=== PATIENT | male | born 1965 | race Two or more races ===

== ENCOUNTER 2021-11-11 09:11 | Outpatient (REF) | payer OTHER, SELFPAY ==
[2021-11-11 11:26] LABS: Prostate Specific Antigen 8.94 ng/mL (<0.05-4.0)
== END 2021-11-11 09:12 | disposition home or self-care (01) ==
LOC: HO.10HDL 09:11
PROVIDERS: Visit Provider Urology
DX: Z12.5 Encounter for screening for malignant neoplasm of prostate (principal); R97.20 Elevated prostate specific antigen [PSA]
CPT/HCPCS: 36415; 84153

== ENCOUNTER → 2021-11-19 13:30 | Outpatient (BNVA) | payer OTHER, SELFPAY | PROVIDERS: PCP Family Medicine; Visit Provider Urology | DX: R97.20 Elevated prostate specific antigen [PSA] (principal); R39.15 Urgency of urination | CPT/HCPCS: 99212 ==

== ENCOUNTER 2022-02-15 07:52 | Outpatient (REF) | payer OTHER, SELFPAY ==
[2022-02-15 07:57] VITALS: BMI 28.1
[2022-02-15 07:59] VITALS: BP 118/75; PULSE 71; RESP 16; TEMP 36.4; O2SAT 98
--- NOTE | 2022-02-15 08:32 | W.PM.OPN ---
Operative Note Operative Note Date of Service: 02/15/22 Narrative: Preoperative diagnosis: Elevated PSA Postoperative diagnosis: Elevated PSA Procedure: 1. transrectal ultrasound measurement of prostate 2. transrectal ultrasound-guided pudendal nerve block 3. transrectal ultrasound-guided prostate biopsy 12 core Surgeon: Dr. Hu Godoy Anesthetic: Local Indications for procedure: Elevated PSA 8.8 Procedure: After informed consent was verified, the patient was brought into the procedure area and lay left-hand side down on the table. Patient identity confirmed. Perioperative antibiotics confirmed. Safety pause time out performed. MAINE performed to dilate rectal sphincter Iodine 10cc with Gel was placed per rectum Ultrasound probe was placed per rectum The prostate was measured in 3 dimensions Total volume equals 30 gm No cystic structures were noted No calcifications were noted at the surgical margin The prostate was otherwise homogeneous in nature An ultrasound-guided pudendal nerve block was performed using 10 cc of 1% lidocaine. 8 cc was placed at the base and 2 cc of the apex. A 12 core biopsy was performed with 6 cores each side. Two cores were taken at the apex, mid and base. Cores were spaced between lateral and medial. He tolerated the procedure well. Was able to ambulate to bathroom after 5 minutes. Printed instructions regarding antibiotic use and common side effects such as low-grade temperature, potential infection and bleeding were given Pathology: 12 core prostate biopsy.
[2022-02-15 08:59] VITALS: BP 124/79; PULSE 82; RESP 16; O2SAT 99
== END 2022-02-15 07:53 | disposition home or self-care (01) ==
LOC: HO.MS 07:52
PROVIDERS: PCP Family Medicine; Visit Provider Urology
PROC: (CPT 55700; principal; 2022-02-15 08:00)
DX: C61 Malignant neoplasm of prostate (principal); R97.20 Elevated prostate specific antigen [PSA]
CPT/HCPCS: 55700; 76942; 88305; 88344

== ENCOUNTER → 2022-03-22 13:24 | Outpatient (BNVA) | payer OTHER, SELFPAY | PROVIDERS: PCP Family Medicine; Visit Provider Urology | DX: C61 Malignant neoplasm of prostate (principal); R97.20 Elevated prostate specific antigen [PSA]; Z79.899 Other long term (current) drug therapy | CPT/HCPCS: 99212 ==

== ENCOUNTER → 2022-04-14 10:38 | Outpatient (REF) | payer OTHER, SELFPAY ==
--- NOTE | ~2022-04-14 | NM_ITS ---
EXAMINATION: NM BONE SCAN OF THE WHOLE BODY CLINICAL INFORMATION: Malignant neoplasm of the prostate. COMPARISON: No pertinent studies are available to me for comparison TECHNIQUE: Multiple gamma scintillation camera images of the whole body were performed 3 hours following the intravenous administration of 28 mCi Tc-99m MDP. FINDINGS: In the head, some minimal areas of nonspecific uptake in the right calvarium high on the right frontally and laterally on the right frontally. In the thoracic cage and upper extremities, unremarkable. In the spine, unremarkable. In the pelvis, some minimal uptake in the area of the lesser trochanter of the left hip. This could be degenerative in nature. In the lower extremities, unremarkable. No other definite bony abnormalities are noted. The urinary bladder and faint visualization of both kidneys are noted. NM/NM bone scan whole body IMPRESSION: Some mild nonspecific areas of uptake are described.. Exam is otherwise unremarkable. Therefore no convincing scintigraphic evidence for metastatic disease.
== END ==
LOC: HO.NUCMED 10:38
PROVIDERS: PCP Family Medicine; Visit Provider Urology
DX: C61 Malignant neoplasm of prostate (principal); C79.51 Secondary malignant neoplasm of bone
CPT/HCPCS: 78306; A9503

== ENCOUNTER → 2022-04-28 12:25 | Outpatient (BNVA) | payer OTHER, SELFPAY | PROVIDERS: PCP Family Medicine; Visit Provider Urology | DX: Z13.89 Encounter for screening for other disorder (principal) ==

== ENCOUNTER → 2022-07-27 15:09 | Outpatient (BNVA) | payer OTHER, SELFPAY | PROVIDERS: PCP Family Medicine; Visit Provider Urology | DX: N52.31 Erectile dysfunction following radical prostatectomy (principal) | CPT/HCPCS: 99212 ==

== ENCOUNTER 2022-11-29 10:47 | Outpatient (AMB) | payer OTHER, SELFPAY ==
--- NOTE | 2022-11-29 11:00 | A.OFFVIS_ITS ---
Intake Intake Visit Reasons: 4m/PSA(set) Intake Note: Patient is present for Follow Up PSA Urology Med: Patient is no longer taking tadalafil due to causing headaches Antibiotic Allergy: None Blood Thinner: None Pharmacy: [facility] Allergies No Known Allergies Allergy (Verified 11/29/22 11:04) Medication List - Last Reconciled 11/29/22 by Hu Godoy MD tadalafil 10 mg PO DAILY 90 days vacuum erection device system As directed HPI HPI Comments History of Present Illness Details Michi is a very pleasant male. He is a patient of Dr. Ryan. He is seen today for the following urologic conditions. - Elevated PSA - Prostate Cancer Six month follow-up Good urinary control PSA low Continued erectile dysfunction Discussed injection therapy 3 month follow-up PSA 12/10 <0.05 Prostate Cancer - 02/08 - Grade Group 4, PSA at diagnosis 8.9 Initial therapy prostatectomy - 06/09 Dr Masters Robotic prostatectomy - pathology confirmed [place] 4 + 5. Organ confined disease. Histologic type: Adenocarcinoma, acinar type Histologic grade: [place] score: 4+5=9 (right mid lateral, right mid medial), 4+4=8 (right apex medial), 4+3=7 (left base medial), 3+3=6 (right apex lateral) Number cores positive: 5 Total number of cores: 12 % of tissue involved: 5-10% of all tissue examined Periprostatic fat inv.: Not identified, Seminal vesicle inv.: Not identified, Perineural inv.: Present, LVI: Not identified Imaging 12/09 MRI left mid apical peripheral 1.2 cm lesion PI-RADS 4, DERREK negative, NVB spared - 04/11 Bone Scan No evidence of disease PFSH Medical History Elevated PSA Surgical History History of surgery Review of Systems Const Denies chills and Denies fever(s) Card Reports no additional complaints and Denies syncope Resp Denies cough GI Denies abdominal pain and Denies heartburn Reports as per HPI and Denies change in libido Neuro Denies syncope Psych Denies change in libido Endo Denies change in libido Physical Exam Const General: cooperative, healthy appearing, comfortable and no acute distress Orientation/consciousness: patient oriented x3 HEENT Face and sinus: Yes normal facial exam Mouth: moist mucous membranes Neck Neck: Yes normal visual inspection, Yes full ROM and Yes trachea midline Chest Chest palpation & inspection: normal inspection of the chest Resp Effort & Inspection: normal respiratory effort, able to speak in complete s entences and no respiratory distress GI Inspection: Yes normal to inspection Back/Spine/Pelvis Cervical Spine: normal cervical lordosis Thoracic/Lumbar Spine: thoracic and lumbar spine normal to inspection Skin General skin exam: no rashes or lesions noted Neuro General: patient oriented x3, gait normal, tone normal and moves all extremities Extrem General: Yes normal to inspection and Yes capillary refill normal Assessment & Plan Assessment & Plan (1) Prostate cancer: Comment: 02/0822 grade group 5, MRI DERREK negative Code(s): C61 - Malignant neoplasm of prostate (2) Erectile dysfunction after radical prostatectomy: Code(s): N52.31 - Erectile dysfunction following radical prostatectomy Plan 3 month follow-up Orders: Orders Prostate Specific Antigen 3 Months C61 - Malignant neoplasm of prostate Patient Instructions: Imaging studies, laboratory and physical exam results were discussed and reviewed in detail. No major barriers to patient understanding were identified. An opportunity to ask questions regarding the treatment plan was provided. All questions were answered. The patient expressed understanding and agreement with the above treatment plan. The patient is aware they should contact our office by phone for worsening of their current condition or the appearance of new urologic symptoms. Compliance is encouraged with any medications and followup testing that is ordered. It is a privilege to participate in the urologic care of your patient. If you have any questions or concerns regarding treatment for the above conditions, or other urologic issues, please do not hesitate to contact me. The office telephone contact is [phone]. This note is constructed using voice recognition software. While every effort has been made to ensure accuracy literacy consultant errors may have been included. Yours sincerely, Dr Hu Godoy MD, [facility] - Urology Providers of Expert, Compassionate Care for the Genitourinary System Coding Level of Care Code Est Pt Level 3 (66046) Diagnoses Prostate cancer C61 Erectile dysfunction after radical prostatectomy N52.31
== END 2022-11-29 11:29 | disposition home or self-care (01) ==
PROVIDERS: PCP Family Medicine; Visit Provider Urology
DX: C61 Malignant neoplasm of prostate (principal); N52.31 Erectile dysfunction following radical prostatectomy
CPT/HCPCS: 99213

== ENCOUNTER → 2022-11-29 10:47 | Outpatient (BNVA) | payer OTHER, SELFPAY | PROVIDERS: Visit Provider Urology | DX: C61 Malignant neoplasm of prostate (principal); N52.31 Erectile dysfunction following radical prostatectomy | CPT/HCPCS: 99212 ==

== ENCOUNTER 2023-04-24 10:50 | Outpatient (AMB) | payer OTHER, SELFPAY ==
--- NOTE | 2023-04-24 11:11 | A.OFFVIS_ITS ---
Intake Intake Visit Reasons: 3m/PSA Intake Note: Patient is present for Follow Up PSA: Results <0.04, 04/12/2023 Urology Med: Patient is no longer taking tadalafil due to causing headaches Antibiotic Allergy: None Blood Thinner: None Pharmacy: [facility] Required: No Accompanied by: Self / Same As Patient Allergies No Known Allergies Allergy (Verified 11/29/22 11:04) HPI HPI Comments History of Present Illness Details Michi is a 58-year-old male followed due to diagnosis of prostate cancer status post robotic radical prostatectomy May 2022. He is followed by Dr. Godoy, he was last seen on 11/29/2022. He is being monitored with PSA blood work. I have reviewed recent PSA. 04/10/2023--PSA--less than 0.04 The patient states he was prescribed Cialis for erectile dysfunction but was not able to tolerate it due to side effect of headaches. Dr. Godoy discussed the VAC pump which he states did not work well for him. Review of chart: Prostate Cancer - 02/08 - Grade Group 4, PSA at diagnosis 8.9 Initial therapy prostatectomy - 06/09 Dr Masters Robotic prostatectomy - pathology confirmed [place] 4 + 5. Organ confined disease. Histologic type: Adenocarcinoma, acinar type Histologic grade: [place] score: 4+5=9 (right mid lateral, right mid medial), 4+4=8 (right apex medial), 4+3=7 (left base medial), 3+3=6 (right apex lateral) Number cores positive: 5 Total number of cores: 12 % of tissue involved: 5-10% of all tissue examined Periprostatic fat inv.: Not identified, Seminal vesicle inv.: Not identified, Perineural inv.: Present, LVI: Not identified Imaging 12/09 MRI left mid apical peripheral 1.2 cm lesion PI-RADS 4, DERREK negative, NVB spared - 04/11 Bone Scan No evidence of disease Plan: Continue to monitor PSA. have answered some questions regarding injection therapy for erectile dysfunction the patient still has some questions he wants to discuss with Dr. Godoy, telehealth follow-up scheduled [facility] Medical History Elevated PSA Surgical History (Updated 04/24/23 @ 11:19 by KENY Parks) History of prostate surgery History of surgery Family History (Updated 04/24/23 @ 11:19 by KENY Parks) Father No problems noted. Mother No problems noted. Sister Colon cancer Social History (Updated 04/24/23 @ 11:20 by KENY Parks) Alcohol intake: current Alcohol intake frequency: a few times a month Patient Tobacco Use Status: Never used Tobacco Review of Systems Const All systems reviewed & are unremarkable except as noted in HPI and below Reports no additional complaints Eyes Reports no additional complaints ENT Reports no additional complaints Card Denies dyspnea Resp Denies cough and Denies dyspnea GI Reports no additional complaints Musc Reports no additional complaints Skin/Breast Denies rash and Denies unusual bruising Neuro Reports no additional complaints Psych Reports no additional complaints Endo Reports no additional complaints Sanchez/Lymph Reports no additional complaints Aller/Immun Reports no additional complaints Results AMB Urinalysis, Automated UA Leukoctes 0 Efren/uL Last Edit by KENY Parks on 04/24/23 11:23 UA Nitrite Negative Last Edit by KENY Parks on 04/24/23 11:23 UA Urobilinogen 0.2 mg/dL Last Edit by KENY Parks on 04/24/23 11:2 3 UA Protein 15 mg/dL Last Edit by KENY Parks on 04/24/23 11:23 UA pH 6.0 Last Edit by KENY Parks on 04/24/23 11:23 UA Blood 0 Rigo/uL Last Edit by KENY Parks on 04/24/23 11:23 UA Specific [place] 1.025 Last Edit by KENY Pakrs on 04/24/23 11: 23 UA Ketone Negative Last Edit by KENY Parks on 04/24/23 11:23 UA Bilirubin 0 mg/dL Last Edit by KENY Parks on 04/24/23 11:23 UA Glucose 0 mg/dL Last Edit by KENY Parks on 04/24/23 11:23 Results Reviewed Results Reviewed: Laboratory Last Values Urine pH (Auto) 6.0 04/24/23 11:20 Specific [place] (Auto) 1.025 04/24/23 11:20 Urine Protein (Auto) 15 mg/dL 04/24/23 11:20 Glucose (UA)(Auto) 0 mg/dL 04/24/23 11:20 Urine Ketones (Auto) Negative 04/24/23 11:20 Urine Blood (Auto) 0 Rigo/uL 04/24/23 11:20 Urine Nitrite (Auto) Negative 04/24/23 11:20 Urine Bilirubin (Auto) 0 mg/dL 04/24/23 11:20 Urine Urobilinogen (Auto) 0.2 mg/dL 04/24/23 11:20 Leukocyte Esterase (Auto) 0 Efren/uL 04/24/23 11:20 Assessment & Plan Assessment & Plan (1) Prostate cancer: Comment: 02/0822 grade group 5, MRI DERREK negative Code(s): C61 - Malignant neoplasm of prostate (2) Erectile dysfunction after radical prostatectomy: Code(s): N52.31 - Erectile dysfunction following radical prostatectomy Plan Telehealth follow-up discuss questions regarding penile injection therapy Orders: Orders AMB Urinalysis Automated Today Z13.9 - Encounter for screening, unspecified Patient Instructions: The patient had an opportunity to ask questions regarding treatment plan. All questions were answered. Laboratory studies and physical exam results were discussed and reviewed in detail. No major barriers to understanding were identified. The patient expressed understanding and agreement with the above treatment plan. The patient is aware they should contact our office by phone for worsening of their current condition or the appearance of new symptoms. Compliance is encouraged with any medications and followup testing that is ordered. It is a privilege to be allowed the opportunity to participate in the urologic care of your patient. If you have any questions or concerns regarding treatment for the above conditions please do not hesitate to contact me. The office telephone contact is [phone]. This note is constructed in part using voice recognition software. While every effort has been made to ensure accuracy superintendent pier errors may have been included. Yours sincerely, Guille Lira MD Coding Level of Care Code Est Pt Level 4 (62331) Diagnoses Prostate cancer C61 Erectile dysfunction after radical prostatectomy N52.31
== END 2023-04-24 12:00 | disposition home or self-care (01) ==
PROVIDERS: PCP Family Medicine; Visit Provider Urology
DX: C61 Malignant neoplasm of prostate (principal); N52.31 Erectile dysfunction following radical prostatectomy; Z13.9 Encounter for screening, unspecified
CPT/HCPCS: 99214

== ENCOUNTER → 2023-04-24 10:50 | Outpatient (BNVA) | payer OTHER, SELFPAY | PROVIDERS: PCP Family Medicine; Visit Provider Urology | DX: C61 Malignant neoplasm of prostate (principal); N52.31 Erectile dysfunction following radical prostatectomy | CPT/HCPCS: 81003; 99212 ==

== ENCOUNTER 2023-06-22 08:23 | Outpatient (AMB) | payer OTHER, SELFPAY ==
--- NOTE | 2023-06-22 08:23 | A.OFFVIS_ITS ---
Intake Intake Visit Reasons: discuss injection therapy(confirmed) Intake Note: Patient presents today for a telehealth follow up on: discussion on injection therapy Meds- Vacuum Erection device system Allergies to Antibiotic- No Known Allergies Blood Thinner- None Outside Parts Sales Required: No Allergies No Known Allergies Allergy (Verified 06/22/23 08:24) Medication List - Last Reconciled 06/22/23 by Hu Godoy MD alprostadil (Edex) 1.25 mcg intra-cavernosal .1XW PRN 90 days vacuum erection device system As directed HPI HPI Comments History of Present Illness Details Michi is a pleasant male. He is a patient of Dr. Ryan. He is seen for the following urologic conditions - prostate cancer Telemedicine Evaluation 15 min Consultation [employer] Video attempted 04/10/2023--PSA--less than 0.04 The patient states he was prescribed Cialis for erectile dysfunction but was not able to tolerate it due to side effect of headaches. Dr. Godoy discussed the VAC pump which he states did not work well for him Prescription for Edex sent to [facility]. He will call when Has prescription for teaching Prostate Cancer - 02/08 - Grade Group 4, PSA at diagnosis 8.9 - robotic prostatectomy 06/09 Initial therapy prostatectomy - 06/09 Dr Masters Robotic prostatectomy - pathology confirmed [place] 4 + 5. Organ confined disease. Histologic type: Adenocarcinoma, acinar type Histologic grade:[place] score: 4+5=9 (right mid lateral, right mid medial), 4+4=8 (right apex medial), 4+3=7 (left base medial), 3+3=6 (right apex lateral) Number cores positive: 5 Total number of cores: 12 % of tissue involved: 5-10% of all tissue examined Periprostatic fat inv.: Not identified, Seminal vesicle inv.: Not identified, Perineural inv.: Present, LVI: Not identified Imaging 12/09 MRI left mid apical peripheral 1.2 cm lesion PI-RADS 4, DERREK negative, NVB spared - 04/11 Bone Scan No evidence of disease Plan: Continue to monitor PSA. Have answered some questions regarding injection therapy for erectile dysfunction the patient still has some questions he wants to discuss with Dr. Godoy, telehealth follow-up scheduled [facility] Medical History Elevated PSA Surgical History History of prostate surgery History of surgery Family History Father No problems noted. Mother No problems noted. Sister Colon cancer Social History Alcohol intake: current Alcohol intake frequency: a few times a month Patient Tobacco Use Status: Never used Tobacco Review of Systems Const All systems reviewed & are unremarkable except as noted in HPI and below Reports no additional complaints Resp Reports no additional complaints GI Reports no additional complaints Reports as per HPI Musc Reports no additional complaints Physical Exam Telemedicine evaluation Appropriate responses Regular breathing rate and rhythm HEENT Head: Yes normal to inspection Ears: hearing grossly normal bilaterally Eyes General: appearance normal, both eyes and all related structures Neck Neck: Yes normal visual inspection Chest Chest palpation & inspection: normal inspection of the chest Resp Effort & Inspection: normal respiratory effort and able to speak in complete sentences Assessment & Plan Assessment & Plan (1) Prostate cancer: Comment: 02/0822 grade group 5, MRI DERREK negative Code(s): C61 - Malignant neoplasm of prostate (2) Erectile dysfunction after radical prostatectomy: Code(s): N52.31 - Erectile dysfunction following radical prostatectomy Plan Pickup Edex at [place] [facility] Medications: New alprostadil (Edex) 1.25 mcg intra-cavernosal .1XW 90 days PRN 12 ea 0RF erectile dysfunction N52.31 - Erectile dysfunction following radical prostatectomy Patient Instructions: Imaging studies, laboratory and physical exam results were discussed and reviewed in detail. No major barriers to patient understanding were identified. An opportunity to ask questions regarding the treatment plan was provided. All questions were answered. The patient expressed understanding and agreement with the above treatment plan. The patient is aware they should contact our office by phone for worsening of their current condition or the appearance of new urologic symptoms. Compliance is encouraged with any medications and followup testing that is ordered. It is a privilege to participate in the urologic care of your patient. If you have any questions or concerns regarding treatment for the above conditions, or other urologic issues, please do not hesitate to contact me. The office telephone contact is [phone]. This note is constructed using voice recognition software. While every effort has been made to ensure accuracy valve setter errors may have been included. Yours sincerely, Dr Hu Godoy MD, [facility] - Urology Providers of Expert, Compassionate Care for the Genitourinary System Telehealth Telehealth Location of provider rendering services: practice address Location of patient: address on file Patient Identification confirmed using: Name, : Yes Telehealth method: video Patient verbally consented to treatment: Yes Patient verbally consented to billing insurance company: Yes Patient informed of any privacy concerns related to visit: Yes Coding Level of Care Code Tele Est Pt Level 3 (92603) Diagnoses Prostate cancer C61 Erectile dysfunction after radical prostatectomy N52.31
== END 2023-06-22 10:38 | disposition home or self-care (01) ==
LOC: HO.HUSH 08:23
PROVIDERS: PCP Family Medicine; Referring Provider Family Medicine; Visit Provider Urology
DX: C61 Malignant neoplasm of prostate (principal); N52.31 Erectile dysfunction following radical prostatectomy
CPT/HCPCS: 99213

== ENCOUNTER → 2023-06-22 08:23 | Outpatient (BNVA) | payer OTHER, SELFPAY | PROVIDERS: PCP Family Medicine; Visit Provider Urology ==